=== PATIENT | male | born 1980 | race Caucasian/White ===

== ENCOUNTER → 2024-05-20 | Outpatient (CLI) | payer OTHER, SELFPAY ==
--- NOTE | 2024-05-20 10:30 | RAD_ITS ---
INDICATION: COUGH EXAMINATION/TECHNIQUE: X-RAY - XR Chest 2 Views COMPARISON: FINDINGS: LINES/DEVICES: None. LUNGS: No consolidation, edema or effusion. No pneumothorax. MEDIASTINUM AND CARDIOVASCULAR STRUCTURES: Cardiac silhouette not enlarged. Central airways and mediastinal contour are unremarkable. BONES AND SOFT TISSUES: Unremarkable. RAD/Chest PA and Lateral IMPRESSION: No radiographic evidence of acute cardiopulmonary disease. Electronically Signed: Abdiel Fu DO at 19:12 EDT ,
[2024-05-20 12:27] LABS: Absolute Lymphocyte Count 2.65 X10^3/uL (0.83-4.51); Basophil# 0.04 X10^3/uL; Basophil% 0.6 % (0-1); Eosinophil# 0.17 X10^3/uL; Eosinophils% 2.6 % (0-5); Hematocrit 39.2 % (40-54); Lymphocyte # 2.65 X10^3/ul (0.83-4.51); Lymphocyte % 40.8 % (19-41); Mean Corp Hgb Conc 33.2 g/dL (32-36); Mean Corpuscular Hgb 30.4 pg (27.0-32.0); Mean Corpuscular Volume 91.8 fL (80-94); Monocyte# 0.64 X10^3/uL; Monocyte% 9.8 % (0-10); NRBC Flagged by Analyzer 0 % (0-5); Neutrophil # 2.98 X10^3/uL (2.7-7.7); Neutrophil % 45.9 % (47-70); Platelet Count 389 K/mm3 (150-450); RBC Distribution Width SD 40.5 fl (35.1-43.9); Red Blood Count 4.27 M/mm3 (4.6-6.2); White Blood Count 6.5 K/mm3 (4.4-11.0)
[2024-05-20 13:28] LABS: ALB/GLOB Ratio 1.1 RATIO (0.9-2.4); AST(SGOT) 31 U/L (15-37); Alanine Aminotransfer ALT/SGPT 55 U/L (16-61); Albumin, Serum 4.2 g/dL (3.2-5.0); Alkaline Phosphatase 48 U/L (45-117); Anion Gap 5 (5-15); BUN 20 mg/dL (7-18); BUN/Creat Ratio 17.9 RATIO (10-20); Calcium,Total 9.5 mg/dL (8.5-10.1); Chloride 105 mmol/L (98-107); Cholesterol 202 mg/dL (200); Creatinine, Serum 1.12 mg/dL (0.70-1.30); EST Glomerular Filtration Rate 76 mL/min (>60); Est Glom Filt Rate - Afr Amer 92 mL/min (>60); Globulin 3.8 g/dL (2.2-4.2); Glucose 93 mg/dL (74-106); High Density Lipoprotein 70 mg/dL; Potassium 4.1 mmol/L (3.5-5.1); Sodium Level 138 mmol/L (136-145); Triglycerides 67 mg/dL; Very Low Density Lipoprotein 13 mg/dL (5-40)
== END | disposition home or self-care (01) ==
LOC: MTLAB 10:28
PROVIDERS: PCP Family Medicine; Referring Provider Family Medicine; Visit Provider Family Medicine
DX: Z00.00 Encounter for general adult medical examination without abnormal findings (principal); R05.3 Chronic cough; Z83.438 Family history of other disorder of lipoprotein metabolism and other lipidemia
CPT/HCPCS: 36415; 71046; 80053; 80061; 85025